=== PATIENT | female | born 1990 | race Caucasian/White ===

== ENCOUNTER → 2018-03-12 | Outpatient (CLI) | payer BC ==
--- NOTE | 2018-03-12 11:32 | Diagnostic Imaging Report ---
INDICATION: Left ankle pain post fall AP, oblique, and lateral views of the left ankle are obtained. No fracture or acute bony abnormality is seen. Joint spaces are unremarkable. IMPRESSION: Negative left ankle. Report was called to Ellyn Xavier by danii at 11:31 am. Dictated by: Dictated on workstation # [id number]
== END ==
LOC: RAD 11:03
PROVIDERS: ATTEND Nurse Practitioner Family
DX: M25.572 Pain in left ankle and joints of left foot (principal); W19.XXXA Unspecified fall, initial encounter
CPT/HCPCS: 73610